=== PATIENT | male | born 1945 | race Caucasian/White ===

== ENCOUNTER → 2020-02-14 12:43 | Outpatient (CLI) | payer MEDICARE, OTHER, SELFPAY ==
--- NOTE | 2020-02-14 12:45 | CA_ITS ---
APPROVED REPORT Kitchen Mechanic: Martha Gayle RVT Laterality: Bilateral Study Quality: Good Indications: Dizziness and Vertigo, TIA,TAYLOR Risk Factors TIA/CVA History Doppler Spectral Velocity Analysis ECA (R) 120.80/16.00 cm/s ECA (L) 96.50/13.50 cm/s dICA (R) 64.20/23.50 cm/s dICA (L) 84.50/28.40 cm/s Rosa (R) 67.40/21.40 cm/s Rosa (L) 82.30/26.20 cm/s pICA (R) 73.80/22.50 cm/s pICA (L) 75.60/28.40 cm/s dCCA (R) 81.30/20.30 cm/s dCCA (L) 65.80/14.20 cm/s pCCA (R) 73.80/15.00 cm/s pCCA (L) 94.30/22.40 cm/s Vert (R) 43.30/12.30 cm/s Vert (L) 24.80/7.30 cm/s ICA/CCA 0.91 ICA/CCA 1.28 Findings Study suggests less than 20% stenosis of the right internal cartoid artery. Study suggests less than 20% stenosis of the left internal cartoid artery. Antegrade flow seen bilateral vertebral arteries. Right thyroid nodule seen. Conclusion Study suggests less than 20% stenosis of the right internal cartoid artery. Study suggests less than 20% stenosis of the left internal cartoid artery. Antegrade flow seen bilateral vertebral arteries. Right thyroid nodule seen. Electronically signed by : Alejo Najera MD 02/15/2020 12:44:05
--- NOTE | 2020-02-14 13:43 | MR_ITS ---
PROCEDURE: MR LUMBAR SPINE WO CON CLINICAL INDICATION: RADICULOPATHY OF LEG LOW BACK PAIN, BILATERAL LEG NUMBNESS. NO INJURY, NO PRIOR COMPARISON: No exams were available for comparison TECHNIQUE: Standard multiplanar multiecho sequences are performed without contrast. 3-D MIP and myelographic images are also rendered and reviewed FINDINGS: There is normal alignment. The spinal cord ends at the L1 level. L1-L2: Unremarkable. Incidental lipoma/hemangioma in L1 L2-L3: Mild degenerative disc disease with bulging disc with facet and ligamentum hypertrophy with mild bilateral lateral recess and foraminal narrowing. L3-L4: Mild degenerative disc disease with minimal bulging disc and a small broad-based left paracentral and foraminal disc protrusion with facet and ligamentum hypertrophy. The disc abuts left L4 nerve root anteriorly. There is moderate left lateral recess and foraminal narrowing. There is a small right foraminal disc protrusion at this level as well causing mild right foraminal narrowing. L4-5: Degenerative disc disease with bulging disc with facet and ligamentum hypertrophy. This is causing moderate left-sided foraminal narrowing with impingement upon the exiting L4 nerve root. L5-S1: Mild degenerative disc disease with 2 mm anterolisthesis of L5 along with facet and ligamentum hypertrophy. IMPRESSION: 1. L2-L3: Mild degenerative disc disease with bulging disc with facet and ligamentum hypertrophy with mild bilateral lateral recess and foraminal narrowing. 2. L3-L4: Mild degenerative disc disease with minimal bulging disc and a small broad-based left paracentral and foraminal disc protrusion with facet and ligamentum hypertrophy. The disc abuts left L4 nerve root anteriorly. There is moderate left lateral recess and foraminal narrowing. There is a small right foraminal disc protrusion at this level as well causing mild right foraminal narrowing. 3. L4-5: Degenerative disc disease with bulging disc with facet and ligamentum hypertrophy. This is causing moderate left-sided foraminal narrowing with impingement upon the exiting L4 nerve root. 4. L5-S1: Mild degenerative disc disease with 2 mm anterolisthesis of L5 along with facet and ligamentum hypertrophy. 5. No canal stenosis or extruded herniated disc. Dictated by: Chance Elmore MD 02/15/2020 10:17 Chance Elmore MD in [place] 02/15/2020 10:17
--- NOTE | 2020-02-14 13:43 | MR_ITS ---
PROCEDURE: MR HEAD/BRAIN WO CON CLINICAL INDICATION: NONINTRACTABALE EPISODIC HEADAHCE, TIA ??TIA, PERIODS OF CONFUSION, HEADACHE. COMPARISON: No exams were available for comparison TECHNIQUE: Routine multiplanar multi echo sequences are performed without gadolinium enhancement. FINDINGS: No midline shift, mass effect, intracranial hemorrhage, or hydrocephalus is evident. There is a small linear area of increased diffusion and decreased ADC signal within the tail of the caudate nucleus on the left suspicious for small lacunar infarction. The cerebellopontine angles, cerebellum, brainstem have an unremarkable appearance. There are a few T2 white matter hyperintensities. The pituitary, optic chiasm, corpus callosum, and craniocervical junction have an unremarkable appearance. No mastoid effusion or sinus air-fluid level. IMPRESSION: Suspect a small lacunar infarction in the tail the caudate on the left otherwise negative MRI of the brain Dictated by: Chance Elmore MD 02/15/2020 10:01 Chance Elmore MD in [place] 02/15/2020 10:01
== END ==
PROVIDERS: PCP Internal Medicine Adolescent Medicine; Visit Provider Internal Medicine Adolescent Medicine
DX: R42 Dizziness and giddiness (principal); R51.9 Headache, unspecified; G45.9 Transient cerebral ischemic attack, unspecified; M54.10 Radiculopathy, site unspecified
CPT/HCPCS: 70551; 72148; 76376; 93880

== ENCOUNTER → 2020-03-24 16:27 | Outpatient (CLI) | payer MEDICARE, OTHER, SELFPAY ==
[2020-03-24 17:29] LABS: Basophils % 0.3 % (0.1-2.0); Eosinophils # 0.2 K/mm3 (0.0-0.4); Eosinophils % 2.3 % (0.1-12.0); Hematocrit 48.2 % (42.0-52.0); Lymphocytes # 2.4 K/mm3 (0.7-4.5); Lymphocytes % 33.9 % (10-50); Mean Corpuscular HGB Conc 33.2 g/dL (31.8-35.4); Mean Corpuscular Volume 99.5 fl (80-94); Mean Platelet Volume 7.8 fl (7.4-10.4); Monocytes # 0.6 K/mm3 (0.1-1.0); Neutrophils # 3.9 K/mm3 (1.8-7.8); Neutrophils % 55.4 % (37.0-80.0); Platelet Count 219 K/mm3 (142-424); Red Blood Count 4.85 M/mm3 (4.60-6.20); Red Cell Distribution Width 14.4 % (11.5-17.5)
[2020-03-24 17:55] LABS: Chloride 101 mmol/L (98-107); Potassium 4.7 mmoL/L (3.5-5.1); Sodium 140 mmol/L (136-145)
[2020-03-24 17:57] LABS: Blood Urea Nitrogen 14 mg/dl (9-20); Estimated Glomerular Filt Rate 65 ml/min (>60); GFR (African American) 79 ML/MIN (>60)
[2020-03-24 17:58] LABS: Alanine Aminotransferase 32 U/L (12-78); Albumin Level 4.5 g/dl (3.5-5.0); Albumin/Globulin Ratio 1.4 (1.1-1.8); Alkaline Phosphatase 53 U/L (38-126); Anion Gap 11.7 mEq/L (5-15); Aspartate Amino Transferase 32 U/L (17-59); Bilirubin,Total 0.4 mg/dl (0.2-1.3); Carbon Dioxide 32 mmol/L (22.0-30.0); Globulin 3.3 g/dL (1.3-3.2); Glucose 94 mg/dl (74-100); Total Protein,Serum 7.8 g/dl (6.3-8.2)
[2020-03-24 18:29] LABS: Thyroid Stimulating Hormone 2.08 uIU/mL (0.465-4.68)
== END ==
PROVIDERS: PCP Internal Medicine Adolescent Medicine; Visit Provider Nurse Practitioner Family
DX: I49.1 Atrial premature depolarization (principal); I49.9 Cardiac arrhythmia, unspecified
CPT/HCPCS: 36415; 80053; 84443; 85025; 93225; 93226

== ENCOUNTER 2020-04-09 10:00 | Outpatient (RCR) | payer MEDICARE, OTHER, SELFPAY ==
--- NOTE | 2020-02-24 09:01 | HMH.PTOPEV ---
PT Outpatient Evaluation Rehab PT Outpatient Evaluation Start: 02/24/20 08:19 Freq: Status: Active Protocol: Document 02/24/20 08:21 [id number] (Rec: 02/24/20 09:00 CHARMAINEUSMAN [id number]) Electronically Signed By Rafael Hurley PT 02/24/20 08:21 Outpatient Therapy Subjective History Subjective History This is the initial Physical Therapy evaluation for Linwood Ryan. Pt is a 74 y/o male referred to PT for c/o LBP and R>L LE S&S. Pt reports insidious onset of pain. Pt does not recall any trauma to area. Pt reports his pain normally begins when he's sitting or trying to go to sleep. Pt reports c/o tightness in R ankle w/ paresthesia in R lateral calf. Pt does reports some c/o pain running from buttocks into R foot. Pt also has c/o cramps in BLE Chief Complaint Pain,Spasms,Stiff Symptom Type Ache,Throb,Sharp,Tingling Symptoms Relieved By Rest/Positioning,Activity Symptoms Aggravated By Sitting Prior Functional Limitations None Current Functional Limitations Housework,Desk Work/Reading, Driving,Sleeping Symptom Description Intermittent Level of pain today (0-10) 0 Pain scale - at its best (0-10) 0 Pain scale - at its worst (0-10) 9 Lumbopelvic Eval Posture Thoracic Spine Posture Standing Position Increased Kyphosis Lumbar Spine Posture Standing Position Decreased Lordosis Assistive device Assistive Devices None / NA Palapation tenderness bilateral lumbar spinal tenderness No paraspinal tenderness No Lumbar/Sacral Palpation Findings Muscle Guarding Range of Motion Lumbar Spine Active Flexion Range of 70 Motion (degrees) Lumbar Spine Active Extension Range of 15 Motion (degrees) Left Lumbar Spine Lateral Flexion Active 25 Range of Motion (degrees) Right Lumbar Spine Lateral Flexion 25 Active Range of Motion (degrees) Lumbar Spine ROM Limitations Soft Tissue Tightness Special Tests Forward Bending Test- Standing Negative Left,Negative Right Forward Bending Test- Sitting Negative Left,Negative Right Hip Scouring (Quadrant) Test Negative Left,Negative Right Hip Piriformis Test Positive Right Sciatic Nerve Tension Test Negative Right Unilateral Straight Leg Raise (Lasegue) Positive Right Test Lumbar Long [place]
== END 2020-04-09 10:05 | disposition home or self-care (01) ==
LOC: PT 10:00
PROVIDERS: PCP Internal Medicine Adolescent Medicine; Visit Provider Internal Medicine Adolescent Medicine
DX: M54.5 Low back pain (principal)
CPT/HCPCS: 97012; 97014; 97110; 97140; 97163; 97164; G0283

== ENCOUNTER → 2020-10-13 09:56 | Outpatient (CLI) | payer MEDICARE, OTHER, SELFPAY ==
[2020-10-13] VITALS (8 sets, daily range): BP systolic 121–156; BP diastolic 71–88; PULSE 71–87; RESP 14–18; TEMP 36.9; O2SAT 96–98
== END ==
PROVIDERS: PCP Internal Medicine Adolescent Medicine; Visit Provider Internal Medicine Adolescent Medicine
DX: U07.1 COVID-19 (principal)
CPT/HCPCS: 96365

== ENCOUNTER → 2021-03-09 14:48 | Outpatient (CLI) | payer MEDICARE, OTHER, SELFPAY ==
--- NOTE | 2021-03-09 14:56 | XR_ITS ---
PROCEDURE: XR KNEE LT 3V CLINICAL INDICATION: RT MEDIAL KNEE PAIN COMPARISON: No exams were available for comparison FINDINGS: No fracture or dislocation. No lytic or blastic change. There is normal mineralization. Mild osteoarthritic changes involving all 3 compartments. Other findings:None. IMPRESSION: Mild osteoarthritic changes slightly progressed Dictated by: Chance Elmore MD 03/09/2021 16:50 Chance Elmore MD in [place] 03/09/2021 16:50
--- NOTE | 2021-03-09 14:56 | XR_ITS ---
PROCEDURE: XR KNEE RT 3V CLINICAL INDICATION: RT MEDIAL KNEE PAIN COMPARISON: CR KNEE3L KNEE-3 VIEWS-LT from 03/15/2016 FINDINGS: No fracture or dislocation. No lytic or blastic change. There is normal mineralization. There are mild osteoarthritic changes involving all 3 compartments. Small suprapatellar effusion noted. Other findings:Vascular calcification IMPRESSION: Mild osteoarthritic change with small suprapatellar effusion. Dictated by: Chance Elmore MD 03/09/2021 16:26 Chance Elmore MD in [place] 03/09/2021 16:26
== END ==
PROVIDERS: PCP Internal Medicine Adolescent Medicine; Visit Provider Internal Medicine Adolescent Medicine
DX: M25.561 Pain in right knee (principal)
CPT/HCPCS: 73562

== ENCOUNTER → 2021-03-10 15:37 | Outpatient (CLI) | payer MEDICARE, OTHER, SELFPAY ==
--- NOTE | 2021-03-10 15:45 | MR_ITS ---
PROCEDURE: MR LUMBAR SPINE WO CON CLINICAL INDICATION: ACUTE RT SIDED BACK PAIN COMPARISON: MR MR LUMBAR SPINE WO CON from 02/14/2020 TECHNIQUE: Standard multiplanar multiecho sequences are performed without contrast. 3-D MIP and myelographic images are also rendered and reviewed FINDINGS: There is normal alignment. The spinal cord ends at the L1 level. Probable hemangioma at L1. L1-L2: Mild facet and ligamentum hypertrophic change with mild left lateral recess narrowing. L2-L3: Mild circumferential bulging disc with facet and ligamentum hypertrophy and mild bilateral lateral recess and foraminal narrowing greater on the right compared to the left and slightly greater on right compared to the previous exam. There is a oval area of decreased T1 and T2 signal involving the L2 vertebral body on the right unchanged. This measures 12 mm. L3-L4: Degenerative disc disease with bulging disc eccentric toward the right with facet and ligamentum hypertrophic change with right lateral recess narrowing and mild bilateral foraminal narrowing greater on the right compared to the left and not significantly changed compared to the previous exam. Small right foraminal disc osteophyte complex similar to the previous exam. L4-5: Degenerative disc disease with 3 mm retrolisthesis of L4 which was not present on the previous exam. There is concentric bulging disc along with facet and ligamentum hypertrophy. There is moderate left-sided foraminal narrowing similar to the previous exam and mild right foraminal narrowing similar to the previous exam. Endplate osteophytes are present in the left foraminal and lateral region similar to the previous exam. L5-S1: Facet and ligamentum hypertrophy. Degenerative disc disease. 2 mm anterolisthesis L5 on S1. Mild bilateral foraminal narrowing not significantly changed. Tiny left paracentral disc protrusion which may been present previously without impingement. IMPRESSION: Multilevel lumbar spondylosis. Please see above for detailed description at each level. Dictated by: Chance Elmore MD 03/11/2021 10:33 Chance Elmore MD in [place] 03/11/2021 10:33
== END ==
PROVIDERS: PCP Internal Medicine Adolescent Medicine; Visit Provider Internal Medicine Adolescent Medicine
DX: M54.41 Lumbago with sciatica, right side (principal)
CPT/HCPCS: 72148; 76376

== ENCOUNTER 2021-05-17 14:00 | Outpatient (RCR) | payer MEDICARE, OTHER, SELFPAY | END 2021-05-17 14:05 | disposition home or self-care (01) | LOC: PT 14:00 | PROVIDERS: PCP Internal Medicine Adolescent Medicine; Visit Provider Orthopaedic Surgery | DX: M51.36 Other intervertebral disc degeneration, lumbar region (principal); M25.561 Pain in right knee | CPT/HCPCS: 97010; 97014; 97110; 97140; 97163; 97530; G0283 ==

== ENCOUNTER → 2022-02-17 11:58 | Outpatient (CLI) | payer MEDICARE, OTHER, SELFPAY ==
--- NOTE | 2022-02-17 12:02 | XR_ITS ---
FINAL REPORT TECHNIQUE: Chest PA & Lateral CLINICAL HISTORY: ACUTE BRONCHOPNEUMONIA FINDINGS: 2 views of the chest were performed. The heart size is normal. The mediastinum is within normal limits. There is no acute cardiopulmonary process. There are chronic changes in the lung bases. There are no pleural effusions. There is no pneumothorax. The bony thorax appears intact. IMPRESSION: No acute cardiopulmonary process. Reviewed, Interpreted and Dictated by Leland Guerrero MD Transcribed by Neftaly Diamond Authenticated and [facility]
== END ==
PROVIDERS: PCP Internal Medicine Adolescent Medicine; Visit Provider Internal Medicine Adolescent Medicine
DX: R50.9 Fever, unspecified (principal); J18.0 Bronchopneumonia, unspecified organism
CPT/HCPCS: 71046

== ENCOUNTER → 2022-09-14 16:38 | Outpatient (CLI) | payer MEDICARE, OTHER, SELFPAY | PROVIDERS: PCP Internal Medicine Adolescent Medicine; Visit Provider Internal Medicine Adolescent Medicine | DX: R00.2 Palpitations (principal) | CPT/HCPCS: 93225; 93226 ==

== ENCOUNTER 2022-12-06 14:00 | Outpatient (RCR) | payer MEDICARE, OTHER, SELFPAY ==
--- NOTE | 2022-11-16 15:02 | HMH.OTOPEV ---
OT Inpatient Evaluation Rehab OT Outpatient Eval Start: 11/16/22 14:49 Freq: Status: Active Protocol: Document 11/15/22 14:49 CHRIS (Rec: 11/16/22 15:02 [id number] [id number]) E-signed By Behzad Huitron, OT Outpatient Therapy Subjective History Subjective History Pt is a 77 year old male who reports to therapy for evaluation to right wrist. Pt reports he has been having pain in right wrist/hand for ~ 3 weeks now. He does not recall a specific injury causing his pain to begin. He is right hand dominant. Pt reports his symtpoms consist of burning, tingling, aching, and numbness in thumb, index, and middle finger of right hand. Pt went to PCP who believes he could possibly have CTS. 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 Pt does demonstrate with decreased AROM, Strength, and tube sizer operator strength at right wrist/ hand. Pt will continue to be seen twice a week in order to address all right hand deficits. 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
== END 2022-12-06 14:05 | disposition home or self-care (01) ==
LOC: OT 14:00
PROVIDERS: PCP Internal Medicine Adolescent Medicine; Visit Provider Nurse Practitioner Family
DX: G56.01 Carpal tunnel syndrome, right upper limb (principal)
CPT/HCPCS: 97010; 97014; 97035; 97110; 97140; 97166; 97530; G0283

== ENCOUNTER → 2022-12-12 12:40 | Outpatient (CLI) | payer MEDICARE, OTHER, SELFPAY ==
--- NOTE | 2022-12-12 12:52 | XR_ITS ---
FINAL REPORT CLINICAL HISTORY: RT THUMB PAIN FINDINGS: AP, lateral and oblique views of the right hand were obtained. There is no prior exam for comparison. There is no acute fracture or dislocation. There is multi joint degenerative disease, most pronounced in the IP joint of the thumb in the DIP joints of the fingers. The soft tissues are normal. IMPRESSION: Degenerative changes without acute bony abnormality. Reviewed, Interpreted and Dictated by Rashmi Conteh MD Transcribed by Rashmi Bunn Authenticated and [facility]
== END ==
PROVIDERS: PCP Internal Medicine Adolescent Medicine; Visit Provider Internal Medicine Adolescent Medicine
DX: M79.644 Pain in right finger(s) (principal)
CPT/HCPCS: 73130

== ENCOUNTER 2023-02-17 09:36 | Day surgery (SDC) | payer MEDICARE, OTHER, SELFPAY ==
[2023-02-17] VITALS (9 sets, daily range): BP systolic 121–160; BP diastolic 86–110; PULSE 56–94; RESP 16–18; TEMP 36.1–36.2; O2SAT 94–99; BMI 33.3
--- NOTE | 2023-02-17 09:43 | ECG_ITS ---
APPROVED REPORT Exam: Resting ECG HR:68 bpm ECG Measurements Heart Rate 68 AXES NJ 173 P 49 QRSd 96 QRS 22 QT 433 T 40 QTc 451 Conclusion SINUS RHYTHM NONSPECIFIC T-WAVE ABNORMALITY BORDERLINE ECG UNCONFIRMED REPORT Electronically signed by : Freddie Burgos MD 02/17/2023 16:29:14
[2023-02-17] MEDS: LACTATED RINGERS 1000ML 1,000 ML 25 ML IV (10:01)
[2023-02-17 10:19] LABS: Basophils % 0.5 % (0.1-2.0); Eosinophils # 0.2 K/mm3 (0.0-0.4); Eosinophils % 2.1 % (0.1-12.0); Hematocrit 47.2 % (42.0-52.0); Hemoglobin 15.6 g/dL (14.1-18.0); Lymphocytes # 2.1 K/mm3 (0.7-4.5); Lymphocytes % 29.4 % (10-50); Mean Corpuscular HGB Conc 33.1 g/dL (31.8-35.4); Mean Corpuscular Hemoglobin 32.4 pg (27.0-31.2); Mean Corpuscular Volume 97.8 fl (80-94); Mean Platelet Volume 7.7 fl (7.4-10.4); Monocytes # 0.5 K/mm3 (0.1-1.0); Monocytes % 6.9 % (1.7-9.3); Neutrophils # 4.3 K/mm3 (1.8-7.8); Neutrophils % 61.1 % (37.0-80.0); Platelet Count 231 K/mm3 (142-424); Red Blood Count 4.82 M/mm3 (4.60-6.20); Red Cell Distribution Width 13.6 % (11.5-17.5); White Blood Count 7.1 K/mm3 (4.8-10.8)
[2023-02-17 10:34] LABS: Chloride 101 mmol/L (98-107); Sodium 135 mmol/L (136-145)
[2023-02-17 10:35] LABS: Potassium 4.2 mmoL/L (3.5-5.1)
[2023-02-17 10:37] LABS: Blood Urea Nitrogen 18 mg/dl (9-20); Creatinine Clearance Estimated 81 mL/min (50-200); Estimated Glomerular Filt Rate 59 ml/min (>60); GFR (African American) 71 ML/MIN (>60)
[2023-02-17 10:38] LABS: Anion Gap 13.2 mEq/L (5-15); Carbon Dioxide 25 mmol/L (22.0-30.0); Glucose 113 mg/dl (74-100)
--- NOTE | 2023-02-17 10:54 | P.PNANES_ITS ---
[facility] Disclaimer: The information contained in this section may have been updated after the patient was seen, as this information can be updated by other users. Medical History (Updated 02/17/23 @ 10:06 by Bossman English RN) A-fib Hypertension Surgical History History of cardiac radiofrequency ablation (RFA) History of colonoscopy History of repair of left rotator cuff Family History (Updated 02/17/23 @ 10:09 by Bossman English RN) Other Family history of heart disease Social History (Updated 02/17/23 @ 10:12 by Bossman English RN) Smoking Status: Never smoker alcohol intake: never substance use type: denies use current occupational status: employed and retired Travel in the last 8 weeks: None [facility] Anesthesia Checklist Patient Identification Patient Identification: Arm Band and Family Structural Data Admitted From: Home Planned Operative Procedure/s: I and D Right upper back sebaseus cyst Consent for Planned Operative Procedure(s) Verified: Yes Verified Documents: Surgical Consent and History and Physical NPO Status Verified Time NPO: 00:00 Additional verifications Patient : No Anesthesia Reactions: No (nausea) Hx Blood Transfusions: No Blood Transfusion Reaction: No Cephalosporin Allergy: Yes Previous Colonoscopy: No Airway Assessment Mallampati Score:: Class III C-Spine Mobility Assessed: Yes Dentition: Good Dentition Neurological Assessment Level of Consciousness: Awake, Alert, Appropriate and Follows Commands Hx Seizures: No Numbness or tingling in extremities: No Anesthesia Plan Anesthesia Risk discussed: Yes ASA Class: III Anesthesia Type: General Preoperative Comments Pre-Operative Comments: History of atrial fib, Ablation done with good results. Hypertension. On Eliquis. PONV.
[2023-02-17] MEDS: LIDOCAINE 1% 30ML PF VIAL 30 ML (11:31)
[2023-02-17] MEDS: CLINDAMYCIN PHOSPHATE/D5W 900 MG/50 ML PIGGYBACK 106 MG IV (11:36)
--- NOTE | 2023-02-17 11:44 | EXP.OP.NOTE ---
Date of procedure: 02/17/23 Pre-op Diagnosis:: Abscessed sebaceous cyst along posterior right shoulder Post-op Diagnosis:: Same Procedure performed:: Incision and drainage/excision of abscessed sebaceous cyst along posterior right shoulder Surgeon:: Wes Noble MD Anesthesia: local and LMA Estimated blood loss (mL): 10 Operative findings:: Abscessed cyst within subcutaneous tissue (3.5 cm) Operative note:: After informed consent was obtained the patient was taken to the operating room and placed in the supine position. General anesthesia with laryngeal mask airway was achieved. He was transferred to the left lateral decubitus position. After infiltration with local anesthetic an elliptical incision was made around the abscessed cyst. Electrocautery was utilized to transect into the deep subcutaneous tissue as the central portion of the cyst was excised and passed off for pathologic evaluation. Electrocautery was then utilized to achieve hemostasis. The wound was packed with dry gauze. Dressings were applied and the patient was transferred to recovery after removal of his laryngeal mask airway. Condition: stable Disposition: PACU Specimens:: Abscessed right posterior shoulder sebaceous cyst Complications:: No immediate
--- NOTE | 2023-02-17 12:01 | EXP.ANES.I ---
[facility] Anesthesia Record Part I Anesthesia Record I Intake, IV Amount: 900 Hydration: Adequate Estimated blood loss (mL): 5 Urine output (mL): 0 Blood Products used (#): none Blood Pressure: 150/86 SaO2: 95 Pulse Rate: 94 Airway Patency: Patent Respiratory Rate: 18 Temperature: 97.2 F Patient is:: Drowsy and Stable Stable to PACU at:: 11:48
[2023-02-17] MEDS: BACITRACIN ZINC OINT 30GM TUBE 28 GM TP (12:02)
--- NOTE | 2023-02-20 07:38 | EXP.ANES.II ---
[facility] Anesthesia Record Part II Anesthesia Record Part II Discharge Time: 12:18 Destination: Surgical Day Care (OP Surgery) PACU nurse assessment reviewed?: Yes Patient Condition:: Good Anesthesia Complications:: None Swallowing reflex intact?: Yes Airway Patency: Patent Cyanosis?: No Blood Pressure: 146/87 SaO2: 96 Respiratory Rate: 18 Pulse Rate: 60 Temperature: 97 F Mental Status: Alert & Oriented Pain level:: 0 Nausea and/or vomitting:: None Intake, IV Amount: 0 Hydration: Adequate
[2023-02-20 07:39] VITALS: BP 146/87; PULSE 60; RESP 18; TEMP 36.1; O2SAT 96
== END 2023-02-17 13:00 | disposition home or self-care (01) ==
PROVIDERS: PCP Internal Medicine Adolescent Medicine; Visit Provider Surgery
PROC: (CPT 10061; principal; 2023-02-17 11:00)
DX: L72.3 Sebaceous cyst (principal); Z79.899 Other long term (current) drug therapy; L02.413 Cutaneous abscess of right upper limb
CPT/HCPCS: 10061; 80048; 85025; 93005; 96374; J2405

== ENCOUNTER 2024-04-04 16:18 | Emergency (ER) | payer MEDICARE, OTHER, SELFPAY ==
[2024-04-04 16:20] VITALS: BP 140/95; PULSE 65; RESP 18; TEMP 36.4; O2SAT 94; BMI 33.9
--- NOTE | 2024-04-04 16:37 | XR_ITS ---
PROCEDURE INFORMATION: Exam: XR Right Humerus Exam date and time: 04/04/2024 5:00 PM Age: 78 years old Clinical indication: Injury or trauma; Fall; Blunt trauma (contusions or hematomas); Shoulder; Right TECHNIQUE: Imaging protocol: Radiologic exam of the right humerus. Views: 2 or more views. Total images: 2 COMPARISON: CR XR HUMERUS RT 04/04/2024 5:00 PM FINDINGS: Bones/joints: No evidence of acute fracture or dislocation. Degenerative changes of the glenohumeral and acromioclavicular joints. Soft tissues: Soft tissues are within normal limits. IMPRESSION: 1. No evidence of acute fracture or dislocation. 2. Degenerative changes of the glenohumeral and acromioclavicular joints.
--- NOTE | 2024-04-04 16:37 | XR_ITS ---
PROCEDURE INFORMATION: Exam: XR Right Shoulder Exam date and time: 04/04/2024 4:57 PM Age: 78 years old Clinical indication: Injury or trauma; Fall; Blunt trauma (contusions or hematomas); Shoulder; Right TECHNIQUE: Imaging protocol: Radiologic exam of the right shoulder. Views: 2 or more views. Total images: 3 COMPARISON: CR XR SHOULDER RT MIN 2V 04/04/2024 4:57 PM FINDINGS: Bones/joints: No evidence of acute fracture or dislocation. Degenerative changes of the glenohumeral and acromioclavicular joints. Soft tissues: Soft tissues are within normal limits. IMPRESSION: 1. No evidence of acute fracture or dislocation. 2. Degenerative changes of the glenohumeral and acromioclavicular joints.
--- NOTE | 2024-04-04 16:42 | CT_ITS ---
PROCEDURE INFORMATION: Exam: CT Thoracic Spine Without Contrast Exam date and time: 04/04/2024 5:01 PM Age: 78 years old Clinical indication: Injury or trauma; Fall; Blunt trauma (contusions or hematomas); Additional info: Ground level fall >65, R shoulder/upper back pain TECHNIQUE: Imaging protocol: Computed tomography of the thoracic spine without contrast. Total images: 324 Radiation optimization: All CT scans at this facility use at least one of these dose optimization techniques: automated exposure control; mA and/or kV adjustment per patient size (includes targeted exams where dose is matched to clinical indication); or iterative reconstruction. COMPARISON: CT CERVICAL SPINE WO CON 04/04/2024 4:59 PM FINDINGS: Bones/joints: The thoracic spine demonstrates mild degenerative changes at multiple levels. No evidence of acute fracture. Anterior hypertrophic bridging noted at multiple levels. Soft tissues: Unremarkable. IMPRESSION: 1. The thoracic spine demonstrates mild degenerative changes at multiple levels. 2. No evidence of acute fracture. 3. Anterior hypertrophic bridging noted at multiple levels.
--- NOTE | 2024-04-04 16:42 | CT_ITS ---
PROCEDURE INFORMATION: Exam: CT Head Without Contrast Exam date and time: 04/04/2024 4:57 PM Age: 78 years old Clinical indication: Injury or trauma; Fall; Blunt trauma (contusions or hematomas); Additional info: Ground level fall >65, R shoulder/upper back pain TECHNIQUE: Imaging protocol: Computed tomography of the head without contrast. Radiation optimization: All CT scans at this facility use at least one of these dose optimization techniques: automated exposure control; mA and/or kV adjustment per patient size (includes targeted exams where dose is matched to clinical indication); or iterative reconstruction. COMPARISON: CT HEAD/BRAIN WO CON 04/04/2024 4:57 PM FINDINGS: Brain: Mild age-related volume loss. No acute intracranial hemorrhage, midline shift or intracranial mass effect. Cerebral ventricles: No obstructive hydrocephalus. Paranasal sinuses: [id number] paranasal sinus disease. Mastoid air cells: Visualized mastoid air cells are well aerated. Bones: Unremarkable. No acute fracture. Soft tissues: Unremarkable. IMPRESSION: No acute intracranial abnormality.
--- NOTE | 2024-04-04 16:42 | CT_ITS ---
PROCEDURE INFORMATION: Exam: CT Chest Without Contrast; Diagnostic Exam date and time: 04/04/2024 5:03 PM Age: 78 years old Clinical indication: Injury or trauma; Fall; Blunt trauma (contusions or hematomas); Additional info: Ground level fall >65, R shoulder/upper back pain TECHNIQUE: Imaging protocol: Diagnostic computed tomography of the chest without contrast. Total images: 463 Radiation optimization: All CT scans at this facility use at least one of these dose optimization techniques: automated exposure control; mA and/or kV adjustment per patient size (includes targeted exams where dose is matched to clinical indication); or iterative reconstruction. COMPARISON: No prior studies available for comparison. FINDINGS: Limitations: Examination limited by the lack of IV contrast. Thyroid: Thyroid gland is within normal limits. Lungs: Granulomatous density noted within the right upper lobe. No focal pneumonia. Pleural spaces: No evidence of pneumothorax. No pleural effusions. Heart: Unremarkable. No cardiomegaly. No pericardial effusion. Coronary arteries: There is moderate atherosclerotic calcification of the coronary arteries. Lymph nodes: No mesenteric or retroperitoneal lymphadenopathy. Calcified right hilar lymph nodes are present consistent with granulomatous changes. Vasculature: Mild atherosclerotic disease. Liver: There is a diffuse decrease in hepatic parenchymal density, consistent with mild fatty infiltration. Gallbladder and biliary ducts: Multiple calcified gallstones are present. Bones/joints: The thoracic spine demonstrates mild degenerative changes at multiple levels. Slight rightward curvature of the thoracic spine. Soft tissues: Unremarkable. IMPRESSION: 1. No mesenteric or retroperitoneal lymphadenopathy. 2. There is a diffuse decrease in hepatic parenchymal density, consistent with mild fatty infiltration. 3. Multiple calcified gallstones are present. 4. No evidence of pneumothorax.
--- NOTE | 2024-04-04 16:42 | CT_ITS ---
PROCEDURE INFORMATION: Exam: CT Cervical Spine Without Contrast Exam date and time: 04/04/2024 4:59 PM Age: 78 years old Clinical indication: Injury or trauma; Fall; Blunt trauma; Additional info: Ground level fall >65, R shoulder/upper back pain TECHNIQUE: Imaging protocol: Computed tomography of the cervical spine without contrast. Radiation optimization: All CT scans at this facility use at least one of these dose optimization techniques: automated exposure control; mA and/or kV adjustment per patient size (includes targeted exams where dose is matched to clinical indication); or iterative reconstruction. COMPARISON: CT CERVICAL SPINE WO CON 04/04/2024 4:59 PM FINDINGS: Bones: Vertebral body height and AP alignment is preserved. Bftg-kj-dicyatmv degenerative change about the dens. Mild prevertebral osteophytosis. Bilateral facet joint degenerative change. No acute cervical spine fracture. Central canal stenoses are suboptimally evaluated secondary to technique. Multilevel cervical foraminal stenoses. Lungs: Lung apices are normal. Pleural spaces: No visible pneumothorax. Vasculature: Vascular calcification. Soft tissues: Unremarkable. IMPRESSION: No acute cervical spine fracture.
--- NOTE | 2024-04-04 17:12 | ED_ITS ---
Discharge Plan Disposition Patient Disposition: Home, Self-Care Condition: Good Prescriptions Prescriptions: No Action mupirocin 2 % ointment 2 ea topical DAILY Patient Comments: APPLY OINTMENT TOPICALLY THREE TIMES DAILY FOR 7 DAYS losartan 25 mg tablet 25 mg PO DAILY Patient Comments: TAKE 1 TABLET BY MOUTH ONCE DAILY pregabalin 50 mg capsule 50 mg PO DAILY Patient Comments: TAKE 1 CAPSULE BY MOUTH AT BEDTIME Eliquis 5 mg tablet 5 mg PO DAILY Patient Comments: TAKE 1 TABLET BY MOUTH TWICE DAILY metoprolol succinate 25 mg tablet extended release 24 hr 25 mg PO DAILY Patient Comments: TAKE 1 TABLET BY MOUTH TWICE DAILY. DO NOT CRUSH OR CHEW Referrals Follow up/Referrals: Phillip Andrea DO [Staff Physician] - See instructions Freddie Burgos MD [Primary Care Provider] - See instructions Activity Restrictions/Add. Instructions Additional Instructions/Restrictions: You were evaluated in the emergency department today. Please take Tylenol and ibuprofen at home as needed for pain. Use sling as needed for comfort, however I recommend moving your shoulder is much as possible to maintain good range of motion. Follow-up closely with orthopedics if you continue to have significant pain. Return to the emergency department for new or worsening symptoms. Clinical Impressions Clinical Impression: Fall, Acute pain of right shoulder Instructions Patient Instructions: DI for Acute Pain -- Adult, DI for Shoulder Pain Print Language Print Language: Grenadian Discharge ED Provider: Anna Marie Dodge General Adult HPI General Chief complaint: Extremity Injury, Upper Stated complaint: AO01/16 Fall RT shoulder inj Time Seen by Provider: 04/04/24 16:23 Mode of Arrival: Ambulatory Source of Information: Patient Limitations: No Limitations Description of Symptoms (Recalled from ER Triage Doc. by RN): r shoulder pain after a fall on ice History of Present Illness HPI narrative: This patient is a 78-year-old male who has a history of atrial fibrillation on Eliquis, hypertension presenting to the emergency department for evaluation with concern for right shoulder pain. Patient states that he was walking up some stairs that were completely covered in snow and ice to the point where he was essentially a ramp, and he had tried to step up onto it when he slid down, falling and landing on his right shoulder. He did not hit his head or lose consciousness. He did not fall from any significant height, as he states that it was barely even a step. He only complains of right shoulder pain but no other concerns or complaints at this time. No new numbness, tingling, or other issues. He was well prior to the fall. Related Data Home Medications ?Medication ?Instructions ?Recorded ?Confirmed apixaban 5 mg tablet (Eliquis) 5 mg PO DAILY 02/17/23 04/19/23 losartan 25 mg tablet 25 mg PO DAILY 02/17/23 04/19/23 metoprolol succinate 25 mg 25 mg PO DAILY 02/17/23 04/19/23 tablet,extended release 24 hr mupirocin 2 % topical ointment 2 ea topical DAILY 02/17/23 04/19/23 pregabalin 50 mg capsule 50 mg PO DAILY 02/17/23 04/19/23 Allergies Allergy/AdvReac Type Severity Reaction Status Date / Time Penicillins Allergy Verified 04/19/23 13:11 [facility] Disclaimer: The information contained in this section may have been updated after the patient was seen, as this information can be updated by other users. Medical History A-fib Hypertension Surgical History History of incision and drainage History of repair of left rotator cuff History of colonoscopy History of cardiac radiofrequency ablation (RFA) Family History Other Family history of heart disease Social History Smoking Status: Never smoker alcohol intake: never substance use type: denies use current occupational status: employed and retired Travel in the last 8 weeks: None Have you lived/traveled outside US in past 30 days?: No Contact w/someone who lives/traveled outside US past 30 days?: No Exposure to someone with infectious disease in past 14 days?: No Do you have a fever (greater than 100.4 F or 38 C)?: No Have you tested positive for COVID-19: No Exposed to someone with COVID-19 in past 14 days?: No Do you have a sore throat?: No Do you have a cough?: No Do you have any weakness?: No Do you have any diarrhea?: No Are you experiencing any unusual bleeding?: No Do you have any muscle aches/pain?: No Do you have any abdominal pain?: No Are you experiencing loss of taste or smell?: No Other Medical History Have you received the Pneumonia Vaccine: No ROS Obtained: Yes All systems reviewed & no additional complaints except as documented Physical Exam General General appearance: alert and in no apparent distress Head Head exam: atraumatic and normocephalic Eye Eye exam: Present normal appearance, PERRL and EOMI ENT ENT exam: Present normal exam, normal oropharynx, mucous membranes moist and normal external ear exam Neck Neck exam: Present normal inspection, full ROM and trachea midline; Absent tenderness Chest Chest inspection: Present normal inspection and symmetric chest wall rise; Absent tenderness Respiratory Respiratory exam: Present normal lung sounds bilaterally; Absent respiratory distress, wheezes, stridor or accessory muscle use Cardiovascular Cardiovascular exam: Present regular rate and normal rhythm Abdominal Exam Abdominal exam: Present soft; Absent distention, tenderness or guarding Extremities Exam Extremities exam: Present tenderness (posterior shoulder), normal capillary refill and other (neurovascularly intact distally); Absent full ROM (limited ROM of R shoulder 2/2 pain) or edema Back Exam Back exam: Present normal inspection and full ROM; Absent tenderness Neurological Exam Neurological exam: Present alert, oriented X3, CN II-XII intact and normal gait; Absent motor sensory deficit Psychiatric Psychiatric exam: Present normal affect and normal mood Skin Skin exam: Present warm and dry Medical Decision Making Medical Records Medical records reviewed: Yes I reviewed the patient's medical records. Screening: Per USPSTF and CDC recommendations, given the prevalence of disease in our region, it is our hospital?s policy to screen for HIV and viral Hepatitis for all patients aged 18 and over and those with ongoing risk factors. Mack Inquiry Pt receiving controlled substance: No Vital Signs: 04/04/24 16:20 04/04/24 17:33 04/04/24 18:01 Temperature 97.6 F Temperature Source Oral Pulse Rate 64 61 Pulse Rate [Left] 65 Respiratory Rate 18 Blood Pressure 146/87 H 153/84 H Blood Pressure [Left Arm] 140/95 H Blood Pressure Mean [Left Arm] 110 02 Sat by Pulse Oximetry 94 L 97 97 Oxygen Delivery Method Room Air Room Air 04/04/24 18:45 Temperature 97.6 F Temperature Source Pulse Rate 61 Pulse Rate [Left] Respiratory Rate 13 Blood Pressure 153/84 H Blood Pressure [Left Arm] Blood Pressure Mean [Left Arm] 02 Sat by Pulse Oximetry Oxygen Delivery Method Lab Data Lab results reviewed: Yes I reviewed the patient's lab results. Orders (Tests/Meds): ORDERS Category Date Time Status CT cervical spine wo con Stat Cat Scan 04/04/24 16:[address] chest wo con Stat Cat Scan 04/04/24 16:[address] head/brain wo con Stat Cat Scan 04/04/24 16:[address] thoracic spine wo con Stat Cat Scan 04/04/24 16:42 Completed XR humerus RT Stat Exams 04/04/24 16:37 Completed XR shoulder RT min 2V Stat Exams 04/04/24 16:37 Completed Medical Decision Narrative: In summary, this patient is a 78-year-old male presenting to the Emergency Department for evaluation of right shoulder pain after a mechanical ground-level fall. Differential diagnoses considered include but are not limited to fracture, contusion, head trauma, neck trauma, back trauma, polytrauma. Ruling out the most morbid conditions drove assessment. It should be noted patient's history includes atrial fibrillation, hypertension which may or may not be at goal therapy. This complicates all aspects of care by increasing patient's risk for morbidity. I reviewed patient's past medical records and noted prior evaluation a year ago and the general surgery show week for sebaceous cyst with excision and drainage. On exam, the patient is sitting upright in no acute distress. Has pain with limited range of motion of the right shoulder and tenderness palpation of the posterior aspect of the shoulder. He is neurovascularly intact with no other injuries noted. No midline spinal tenderness. Based on Lebanese head CT and C- spine rules, cannot exclude head or neck trauma given age greater than 65. Given this, workup included CT head and C-spine, CT chest and T-spine, as well as x-rays of the right shoulder. He declines need for pain medication at this time. I independently interpreted CT scans and x-rays prior to the radiologist read and noted no intracranial hemorrhage, no acute fracture. Please see their read for final interpretation. On reassessment, patient is alert, oriented, conversational, and neurovascularly intact in his right upper extremity. Ultimately, I feel we have excluded acute life-threatening pathology as a cause of his symptoms and I feel he is appropriate for discharge home with close follow-up with orthopedics, primary care, and very strict return precautions. He was given sling as needed for comfort of his right upper extremity but was instructed to range his arm is much as possible. Strict return precautions were given at time of discharge Critical Care Critical Care Time Critical Care Time: No
[2024-04-04 17:33] VITALS: BP 146/87; PULSE 64; O2SAT 97
[2024-04-04 18:01] VITALS: BP 153/84; PULSE 61; O2SAT 97
--- NOTE | 2024-04-04 18:34 | PC.NURSE ---
DR ASHLEY AT BEDSIDE TO UPDATE PT AND FAMILY
[2024-04-04 18:45] VITALS: BP 153/84; PULSE 61; RESP 13; TEMP 36.4; O2SAT 97
== END 2024-04-04 18:45 | disposition home or self-care (01) ==
PROVIDERS: Emergency Provider Emergency Medicine; PCP Internal Medicine Adolescent Medicine
DX: M25.511 Pain in right shoulder (principal); W00.1XXA Fall from stairs and steps due to ice and snow, initial encounter; Y93.89 Activity, other specified; Y92.89 Other specified places as the place of occurrence of the external cause
CPT/HCPCS: 70450; 71250; 72125; 72128; 73030; 73060; 99284

== ENCOUNTER 2024-06-17 11:00 | Outpatient (RCR) | payer MEDICARE, OTHER, SELFPAY | END 2024-06-17 23:59 | disposition home or self-care (01) | LOC: OT 11:00 | PROVIDERS: Visit Provider Orthopaedic Surgery | DX: S46.011A Strain of muscle(s) and tendon(s) of the rotator cuff of right shoulder, initial encounter (principal) | CPT/HCPCS: 97014; 97110; 97140; 97165; 97530; G0283 ==

== ENCOUNTER 2024-07-04 14:00 | Outpatient (RCR) | payer MEDICARE, OTHER, SELFPAY | END 2024-07-04 23:59 | disposition home or self-care (01) | LOC: OT 14:00 | PROVIDERS: Visit Provider Orthopaedic Surgery | DX: S46.011A Strain of muscle(s) and tendon(s) of the rotator cuff of right shoulder, initial encounter (principal) | CPT/HCPCS: 97014; 97110; 97140; 97168; G0283 ==

== ENCOUNTER 2024-08-16 11:00 | Outpatient (RCR) | payer MEDICARE, OTHER, SELFPAY | END 2024-08-16 23:59 | disposition home or self-care (01) | LOC: OT 11:00 | PROVIDERS: Visit Provider Orthopaedic Surgery | DX: S46.011A Strain of muscle(s) and tendon(s) of the rotator cuff of right shoulder, initial encounter (principal) | CPT/HCPCS: 97014; 97110; 97140; G0283 ==

== ENCOUNTER 2024-09-11 11:00 | Outpatient (RCR) | payer MEDICARE, OTHER, SELFPAY | END 2024-09-11 23:59 | disposition home or self-care (01) | LOC: OT 11:00 | PROVIDERS: Visit Provider Orthopaedic Surgery | DX: S46.011A Strain of muscle(s) and tendon(s) of the rotator cuff of right shoulder, initial encounter (principal) | CPT/HCPCS: 97014; 97110; 97140; 97530; G0283 ==

== ENCOUNTER 2024-09-18 13:52 | Outpatient (RCR) | payer MEDICARE, OTHER, SELFPAY | END 2024-09-18 23:59 | disposition home or self-care (01) | LOC: OT 13:52 | PROVIDERS: Visit Provider Internal Medicine Adolescent Medicine | DX: S46.011A Strain of muscle(s) and tendon(s) of the rotator cuff of right shoulder, initial encounter (principal) | CPT/HCPCS: 97014; 97110; 97140; G0283 ==

== ENCOUNTER 2024-11-25 12:00 | Outpatient (CLI) | payer MEDICARE, OTHER, SELFPAY ==
--- OUTSIDE RECORDS SUMMARY | 2024-10-15 13:40 | XMS_ITS | Encounter Summary ---
Author Organization [facility] Address [address] [place] [address] Care Team Providers Care High Voltage Electrician Name Role Phone Freddie Burgos MD Primary Care Provider [phone] Reason for Referral * Other Medical (Routine) - Pending Review Specialty Diagnoses / Procedures Referred By Contac t Referred To Contact Diagnoses Traumatic complete tear of right rotator cuff, subsequent encounter Procedures Injection - Large Joint: R subacromial bursa Cesar Henry MD [address] [address] Phone: tel: fax: Referral ID Status Reason Start Date Expiration Date V isits Requested Visits Authorized [id number] Pending Review 10/15/2024 04/16/2026 1 1 Reason for Visit * Reason Comments Follow-up Injections Encounter Details Date Type Department Care Team (Late st Contact Info) Description 10/15/2024 1:40 PM EDT Office Visit [facility] [address] [place] [address] Cesar Henry MD [address] [place] [address] Traumatic complete tear of right rotator cuff, subsequent encounter (Primary Dx) Social History Tobacco Use Types Packs/Day Years Used Date Smoking Tobacco: Former Cigarettes 1 2 1967 Passive Smoke Exposure: Never Smokeless Tobacco: Never Tobacco Cessation:Counseling Given: Not Answered Alcohol Use Standard Drinks/Week Comments Not Currently 0 (1 standard drink = 0.6 oz pure alcohol) Alcoholic Drinks/day: Social alcohol use PHQ-2 Answer Date Recorded Patient Health Questionnaire-2 Score 0 07/16/2024 PHQ-9 Answer Date Recorded Patient Health Questionnaire-9 Score 0 07/16/2024 CAGE ASSESSMENT Answer Date Recorded Cage unable to access Not on file 09/16/2022 Maximum number of drinks you had on a given occasion in the last month? 0 drinks 09/16/2022 How many alcoholic Beverages do you typically drink in a week? 0 - 7 per week 09/16/2022 Have you ever felt you should CUT down on your d rinking? 0 09/16/2022 Have you been ANNOYED by peo ple criticizing your drinking? 0 09/16/2022 Have you felt GUILTY about your drinking? 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 0 09/16/2022 CAGE Questionnaire Score 0 023 Sex and Gender Information Value Date Recorded Sex Assigned at Male 09/17/2022 6:42 PM EDT Legal Sex Male 8:05 PM EDT Gender Identity Male 09/17/2022 6:42 PM EDT Sexual Orientation Straight 09/17/2022 6: 42 PM EDT documented as of this encounter Last Filed Vital Signs Vital Sign Reading Time Taken Comments Blood Pressure 173/86 10/15/2024 12:57 PM EDT Pulse - - Temperature - - Respiratory Rate - - Oxygen Saturation - - Inhaled Oxygen Concentration - - Weight 111 kg (245 lb) 10/15/2024 12:57 PM EDT Height 182.9 cm (6') 10/15/2024 12:57 PM EDT Body Mass Index 33.23 10/15/2024 12:57 PM EDT documented in this encounter Miscellaneous Notes * Progress Notes - Sushil Escalante DO - 10/15/2024 1:40 PM EDTAssociated Order(s): Injection - Large Joint: R subacromial bursa Post-Procedure Diagnose(s): Traumatic complete tear of right rotator cuff, subsequent encounter Orthopedic Surgery Sports Medicine Clinic Note Reason for Visit/Chief Complaint: Right shoulder pain/Follow-up History of present illness: Linwood Ryan is a 79 y.o. male who presents today as a follow-up for evaluation of right shoulder. Patient had a fall in March and had acute right shoulder pain. He had anMRI which demonstrated a full-thickness rotator cuff tear retracted with some mild fatty atrophy. Patient continues with physical therapy per the [facility] protocol and reports that he is doing well. He re cently took a vacation so he has not been doing his exercises for the past couple of weeks. His only complaint is some night time pain that makes it difficult to sleep,. Objective: Constitutional: Well developed, well nourished, no acute distress HEENT: mucous membranes moist, normocephalic atraumatic Psychologic: appropriate mood and affect Chest: bilateral chest elevations, symmetric Cardiovascular: pink extremities, peripheral perfusion intact Respiratory: no respiratory distress, nonlabored on room air Abdomen: soft, nontender Neurologic: orientation to person, place and time Right SHOULDER EXAM There is no cervical tenderness and negative Spurling's. No obvious atrophy or deformity. No scapular dyskinesia. Patient has tenderness about the anterolateral shoulder. Active elevation is 60?? passive to 150, external rotation at the side 60??, internal rotation to back pocket. There is pain with elevation and resisted strength testing. There is pain with resisted external rotation. There is moderate weakness to supraspinatus testing, mild weakness to external rotation. Lift-off test is normal. The patient has a painful arc of abduction and positive impingement signs. There is a negative speed's test and negative Yergason's test. There is no significant pain with cross-arm adduction. No signs of instability or apprehension. Distal neurovascular exam is normal. The patient has a warm and well-perfused upper extremity with capillary refill less than 2 seconds.Sensation is intact to light touch in terminal nerve distributions. The patient has no palpable epitrochlear lymphadenopathy. Imaging: No new imaging, previous images reviewed: X-Rays: Personally reviewed radiographs from an outside facility which demonstrates mild degenerative glenohumeral and acromioclavicular joint space changes with humeral head aligned at the glenoid. No evidence of fracture. MRI: MRI Right shoulder from 05/14/2024 shows a relatively large full thickness rotator cuff tear involving the supraspinatus and infraspinatus, suspicion for a superior border subscapularis tear. Teres minor and lower boarder subscap intact, biceps is centered and in groove with fluid in the sheath. Mild arthritic changes present. There is about 40-50% fatty infiltrate of the supraspinatus, mild fattyinfiltrate of the infraspinatus. Patient ID: Linwood Ryan is a 79 y.o. male. Encounter Diagnosis Name Primary? Traumatic complete tear of right rotator cuff, subsequent encounter Yes Injection - Large Joint: R subacromial bursa on 10/15/2024 2:00 PM Indications: pain Details: 22 G needle, lateral approach Medications: 5 mL bupivacaine 0.5 %; 5 mL lidocaine 1 %; 80 mg Kenalog-40 40 MG/ML Procedure, treatment alternatives, risks and benefits explained, specific risks discussed. Consent was given by the patient. Immediately prior to procedure a time out was called to verify the correctpatient, procedure, equipment, support group manager and site/side marked as required. Patient was prepped and draped in the usual sterile fashion. Assessment/Plan Linwood Ryan is a 79-year-old male seen for follow-up right shoulder with right shoulder pain after afall with an MRI showing a full thickness rotator cuff tear with retraction to the middle of the humeral head. He has done well with conservative treatment including physical therapy and activity modification. Therefore will continue conservative management. His only complaint is night time pain. We discusseddifferent treatment options. Decision was made to proceed with a right shoulder subacromial injection. I discussed risks and benefits of the injection which include but are not limited to: bleeding, infection, stiffness, and continued pain. Informed consent was obtained. The patient agreed to proceed with the injection. The injection was tolerated well without complication. See procedure note. He tolerated the injection well. Continue PT following [facility] Therapist Guided Protocol Follow-up in 3 months Cosigned by Cesar Henry MD at 10/17/2024 6:12 PM EDT Associated attestation - Cesar Henry MD - 10/17/2024 6:12 PM EDT I saw and evaluated the patient with the resident/fellow. I discussed the case with the resident/fellow and agree with the findings and plan as documented. I personally performed the right shoulder subacromial injection. documented in this encounter Plan of Treatment Upcoming Encounters Date Type Department Care Team (Late st Contact Info) Description 01/16/2025 12:40 PM EDT Office Visit [facility] [address], [address] [place] [id number] Cesar Henry MD [address] [place] [id number] 07/15/2025 1:20 PM EDT Office Visit [facility] [place] [address] [place] [address] Melvin Mcgarry MD [address] [place] [address] documented as of this encounter Procedures Procedure Name Priority Date/Time Associated Diagnosis Comments [place] ARTHROCENTESIS ASPIR&/INJ MAJOR JT/BURSA W/O US Routine 10/15/2024 2:00 PM EDT Traumatic complete tear of right rotator cuff, subsequent encounter documented in this encounter Results * [place] ARTHROCENTESIS ASPIR&/INJ MAJOR JT/BURSA W/O US (10/15/2024 2:00 PM EDT) Narrative Cesar Henry MD - 10/15/2024 2:00 PM EDT Cesar Henry MD 10/17/2024 6:12 PM Injection - Large Joint: R subacromial bursa on 10/15/2024 2:00 PM Indications: pain Details: 22 G needle, lateral approach Medications: 5 mL bupivacaine 0.5 %; 5 mL lidocaine 1 %; 80 mg Kenalog-40 40 MG/ML Procedure, treatment alternatives, risks and benefits explained, specific risks discussed. Consent was given by the patient. Immediately prior to procedure a time out was called to verify the correct patient, procedure, equipment, support group manager and site/side marked as required. Patient was prepped and draped in the usual sterile fashion. Cesar Henry MD IN CLINIC/BEDSIDE ORDERABLES Fin al Result documented in this encounter Visit Diagnoses Diagnosis Traumatic complete tear of right rotator cuff, subsequent encounter- Primary documented in this encounter Administered Medications Inactive Administered Medications - up to 3 most recent administrations Medication Order MAR Action Action Date Dose Rate Site bupivacaine (Marcaine) 0.5 % injection 5 mL 5 mL, Injection, Once PRN Procedure, 1 dose, Starting on 10/15/24 at 1400, Until 10/15/24 at 1400, RoutineIndications:Traumatic complete tear of right rotator cuff, subsequent encounter Given 10/15/2024 2:00 PM EDT 5 mL lidocaine (Xylocaine) 1 % injection 5 mL 5 mL, Intra-articular, Once PRN Procedure, 1 dose, Starting on 10/15/24 at 1400, Until 10/15/24 at 1400, RoutineIndications:Traumatic complete tear of right rotator cuff, subsequent encounter Given 10/15/2024 2:00 PM EDT 5 mL triamcinolone acetonide (Kenalog-40) injection 80 mg 80 mg, Intra-articular, Once PRN Procedure, 1 dose, Starting on 10/15/24 at 1400, Until 10/15/24 at 1400, RoutineIndications:Traumatic complete tear of right rotator cuff, subsequent encounter Given 10/15/2024 2:00 PM EDT 80 mg documented in this encounter Additional Health Concerns Assessment Noted Time PHQ-9 Depression Total Score: 0 07/17/19 25 1:21 PM EDT A fall risk assessment has been complete d for the patient 10/15/2024 12:57 PM EDT A Body Mass Index follow-up plan has been documented for the patient 10/17/2024 6:13 PM EDT documented as of this encounter Care Teams High Voltage Electrician Relationship Specialty Start Date End Date Freddie Burgos MD [address] [place] [address] PCP - General Internal Medicine 08/04/23 documented as of this encounter
--- OUTSIDE RECORDS SUMMARY | 2024-11-25 12:04 | XMS_ITS | Clinical Summary ---
Author Organization [facility] Address [address] [place] [address] Care Team Providers Care Orchestrator Name Role Phone Freddie Burgos MD Primary Care Provider [phone] Medications Sod Picosulfate-Mag Ox-Cit Acd 10-3.5-12 MG-GM -GM/160ML solutionIndicat ions:Screening for colon cancer Take 160 mL by mouth Take As Directed. Follow instructions that were mailed to your home. If you didn't receive these call [phone]. 320 mL 2 Active Social History Tobacco Use Types Packs/Day Years Used Date Smoking Tobacco: Never Assessed Abuse Screen Answer Date Recorded Unsafe at Home or Work/School Not on file Feels Threatened by Someone? Not on file 12/2022 Does Anyone Keep You from Co ntacting Others or Doint Things Outside the Home? Not on file 12/27/2022 Physical Sign of Abuse Present Not on file 1 Housing Stability Answer Date Recorded Current Living Arrangements Not on file 12/18 Potentially Unsafe Housing Conditions Not on wai e 12/27/2022 Family and Community Support Answer Armando e Recorded Help with Day-to-Day Activities Not on file 12/27/2022 Lonely or Isolated Not on file 12/27/2022 Employment Answer Date Recorded Do you want help finding or keeping work or a steffany b? Not on file 12/27/2022 Disabilities Answer Date Recorded Concentrating, Remembering, or Making Decisions Difficulty Not on file 12/27/2022 Doing Errands Independently Difficulty Not on fi le 12/27/2022 Education Answer Date Recorded Help with school or training? Not on file Preferred Language Not on file 12/27/2022 Sex and Gender Information Value Date Recorded Sex Assigned at Not on file Legal Sex Male 1:40 PM EDT Gender Identity Not on file Sexual Orientation Not on file Plan of Treatment Health Maintenance Due Date Last Done Comments TDAP/TD VACCINES (1 - Tdap) 1964 Pneumococcal Vaccine 50+ (1 of 1 - PCV) 09/09/1995 ZOSTER VACCINE (1 of 2) 09/09/1995 ANNUAL PHYSICAL 07/20/2018 HEPATITIS C SCREENING 07/20/2018 RSV Vaccine - Adults (1 - 1- dose 75+ series) 2020 COVID-19 Vaccine (1 - 2023- season) 2024 INFLUENZA VACCINE 12/18/2024 COLONOSCOPY Discontinued 07/19/2021, 08/09/2018 COLORECTAL CANCER SCREENING Discontinued COLOGUARD Discontinued COLON CANCER SCREENING 5 YEA R SIGMOID[address]COPY Discontinued CT COLONOGRAPHY Discontinued FECAL OCCULT BLOOD TEST Discontinued FIT Testing (1 year) Discontinued Procedures Procedure Name Priority Date/Time Associated Diagnosis Comments SCANNED - COLONOSCOPY 07/19/2021 from Last 3 Months or Most Recently Relevant to Health Maintenance Results * SCANNED - COLONOSCOPY (07/19/2021) Wali Grnat MD CHART REVIEW TABS Final Res ult from Last 3 Months or Most Recently Relevant to Health Maintenance Insurance MEDICARE A & B Care Teams Orchestrator Relationship Specialty Start Date End Date Freddie Burgos MD [address] [place] [address] [address] PCP - General Adolescent Medicine 07/20/18
--- OUTSIDE RECORDS SUMMARY | 2024-11-25 12:04 | XMS_ITS | Encounter Summary ---
Author Organization [facility] Address [address] [place] [address] Care Team Providers Care Ecmo Specialist Name Role Phone Freddie Burgos MD Primary Care Provider [phone] Reason for Referral * Consultation (Routine) - Closed Specialty Diagnoses / Procedures Referred By Contac t Referred To Contact Sports Medicine Diagnoses Arthritis of shoulder region, right Acute pain of right shoulder Fall in home, initial encounter Freddie Burgos MD [address] [facility] [address] [place] [address] Phone: tel: fax: Cesar Henry MD [address] [place] [phone] Phone: tel: fax: Referral ID Status Reason Start Date Expiration Date V isits Requested Visits Authorized [id number] Closed Specialty Services Required 04/05/2024 10/05/2025 1 1 Encounter Details Date Type Department Care Team (Late st Contact Info) Description 04/05/2024 [facility] [address] [place] [address] Freddie Burgos MD [address] [facility] [address] [facility] [address] [place] [address] Arthritis of shoulder region, right (Primary Dx); Acute pain of right shoulder; Fall in home, initial encounter Social History Tobacco Use Types Packs/Day Years Used Date Smoking Tobacco: Never Passive Smoke Exposure: Never Smokeless Tobacco: Never Alcohol Use Standard Drinks/Week Comments Not Currently 0 (1 standard drink = 0.6 oz pure alcohol) Alcoholic Drinks/day: Social alcohol use PHQ-2 Answer Date Recorded Patient Health Questionnaire-2 Score 0 10/26/2023 CAGE ASSESSMENT Answer Date Recorded Cage unable [...] drink first t laura in the morning (EYE-COMMUNITY RELATIONS ADVISOR) to steady your nerves or to get rid of a hangover? 0 09/16/2022 CAGE Questionnaire Score 0 023 Sex and Gender Information Value Date Recorded Sex Assigned at Male 09/17/2022 6:42 PM EDT Legal Sex Male 8:05 PM EDT Gender Identity Male 09/17/2022 6:42 PM EDT Sexual Orientation Straight 09/17/2022 6: 42 PM EDT documented as of this encounter Plan of Treatment Upcoming Encounters Date Type Department Care Team (Late st Contact Info) Description 01/16/2025 12:40 PM EDT Office Visit [facility] Orthopaedic Surgery & Sports Medicine [address], [address] [place] [address] Cesar Henry MD [address] [facility] [address] [place] [address] 07/15/2025 1:20 PM EDT Office Visit [facility] [place] [address] [facility] [place] [address] Melvin Mcgarry MD [address] [place] [address] Scheduled Referrals Name Type Priority Associated Diagnoses Order Schedule Ambulatory referral to General Orthopaedics Outpatient Referral Routine Arthritis of shoulder region, right Acute pain of right shoulder Fall in home, initial encounter Expected: 04/05/2024 (Approximate), Expires: 10/03/2025 documented as of this encounter Visit Diagnoses Diagnosis Arthritis of shoulder region, right- Primary Acute pain of right shoulder Fall in home, initial encounter documented in this encounter Additional Health Concerns Assessment Noted Time A fall risk assessment has been complete d for the patient 11/07/2023 1:53 PM EDT A Body Mass Index follow-up plan has been documented for the patient 11/07/2023 2:14 PM EDT documented as of this encounter Care Teams Ecmo Specialist Relationship Specialty Start Date End Date Freddie Burgos MD [address] [place] [address] PCP - General Internal Medicine 08/04/23 documented as of this encounter
--- OUTSIDE RECORDS SUMMARY | 2024-11-25 12:04 | XMS_ITS | Clinical Summary ---
Author Organization [facility] Address [address] [place] [address] Care Team Providers Care Speech Language Assistant Name Role Phone Freddie Burgos MD Primary Care Provider [phone] Allergies Active Allergy Reactions Criticality Noted Date Comments Amoxicillin-Pot Clavulanate Unknown - Pa tient states they do not know rxn details Low 05/31/2020 Penicillins Unknown - Patient st ates they do not know rxn details Low 05/31/2020 Medications pregabalin (Lyrica) 50 MG capsule Take 1 capsule (50 mg) by mouth. Takes 1 capsule in AM and 2 capsules in PM Active ascorbic acid (Vitamin C) 500 MG tablet Take by mouth. Activ e coenzyme Q-10 100 MG capsule See administration instructions. 06/01/19 21 Active folic acid (Folvite) 1 MG tablet Take 1 tablet (1,000 mcg) by mouth Daily. 06/01/19 21 Active zinc gluconate 50 MG tablet Take 1 tablet (50 mg) by mouth 1 (one) time each day. 06/03/19 21 Active losartan (Cozaar) 25 MG tabletIndication s:Essential hypertension Take 1 tablet (25 mg) by mouth 1 (one) time each day. 90 tablet 04/25/19 24 Active metoprolol succinate XL (Toprol-XL) 50 MG 24 hr tablet Take 1 tablet by mouth 2 times a day. Do not crush or chew. 180 tablet 3 07/17/19 25 026 Active Active Problems Problem Noted Date Diagnosed Date Sebaceous cyst 08/04/2023 Exertional shortness of breath 08/04/2023 Venous insufficiency 08/04/2023 Varicose veins of bilateral lower extremities wi th pain 08/04/2023 Diminished pulse 08/04/2023 Essential (primary) hypertension 08/04/2023 Lymphedema 08/04/2023 Atrial fibrillation 12/13/2022 Atrial premature contractions 07/14/2020 Atrial tachycardia 07/14/2020 Neuropathy 05/31/2020 Afib 05/31/2020 Resolved Problems Problem Noted Date Diagnosed Date Resolved Date Paroxysmal atrial fibrillation 09/21/2022 10/23/2023 Frequent headaches 05/31/2020 Encounters Date Type Department Care Team Description 10/15/2024 1:40 PM EDT Office Visit [facility] Orthopaedic Surgery & Sports Medicine [address] [place] [address] Cesar Henry MD Traumatic complete tear of right rotator cuff, subsequent encounter (Primary Dx) 10/15/2024 Travel 10/12/2024 Travel from Last 3 Months Family History Medical History Relation Name Comments Anxiety disorder Sister Relation Name Status Comments Sister Social History Tobacco Use Types Packs/Day Years Used Date Smoking Tobacco: Former Cigarettes 1 2 1 966 - 1967 Passive Smoke Exposure: Never Smokeless Tobacco: [...] drink first t laura in the morning (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 0 09/16/2022 CAGE Questionnaire Score 0 023 Sex and Gender Information Value Date Recorded Sex Assigned at Male 09/17/2022 6:42 PM EDT Legal Sex Male 8:05 PM EDT Gender Identity Male 09/17/2022 6:42 PM EDT Sexual Orientation Straight 09/17/2022 6: 42 PM EDT Last Filed Vital Signs Vital Sign Reading Time Taken Comments Blood Pressure 173/86 10/15/2024 12:57 PM EDT Pulse 62 07/16/2024 1:10 PM EDT Temperature 36.2 C (97.2 F) 11/07/2023 1:49 PM EDT Respiratory Rate 18 10/26/2023 1:28 PM EDT Oxygen Saturation 95% 07/16/2024 1:10 PM EDT Inhaled Oxygen Concentration - - Weight 111 kg (245 lb) 10/15/2024 12:57 PM EDT Height 182.9 cm (6') 10/15/2024 12:57 PM EDT Body Mass Index 33.23 10/15/2024 12:57 PM EDT Plan of Treatment Upcoming Encounters Date Type Department Care Team (Late st Contact Info) Description 01/16/2025 12:40 PM EDT Office Visit [facility] Orthopaedic Surgery & Sports Medicine [address] [facility], [address] [place] [address] Cesar Henry MD [address] [place] [address] 07/15/2025 1:20 PM EDT Office Visit [facility] [place] [address] [facility] [place] [address] Melvin Mcgarry MD [address] [place] [address] Health Maintenance Due Date Last Done Comments [facility]-Hepatitis C Screening 1945 [facility]-Medicare Annual Wellness (AWV) 1945 [facility]-Infant/Child/Adol SDOH Screenings 1945 [id number] Vaccine (#1) 1950 [facility]- SDOH Screenings 09/09/1963 [facility]-Adult SDOH Screenings 09/09/1963 [facility]-DTaP,Tdap,and Td Vaccines (1 - Tdap) 1964 [facility]-Pneumococcal Vaccine: 50+ Years (1 of 1 - PCV) 09/09/1995 [facility]-Zoster Vaccines (1 of 2) 09/09/1995 [facility]-RSV Vaccine: 60+ Years or (1 - 1-dose 75+ series) 2020 [facility]-Influenza Vaccine (#1) 2024 [facility]-Depression Screening 07/16/2025 07/16/2024, 06/19 [facility]-Obesity Intervention Completed 025, 07/16/2024, 07/09/2024, Additional history exists HPV Vaccines Aged Out No longer eligi ble based on patient's age to complete this topic [facility]-HIB Vaccines Aged Out No longer e ligible based on patient's age to complete this topic [facility]-Hepatitis A Vaccines Aged Out No longer eligible based on patient's age to complete this topic [facility]-IPV Vaccines Aged Out No longer e ligible based on patient's age to complete this topic [facility]-Rotavirus Vaccines Aged Out No lo nger eligible based on patient's age to complete this topic Procedures Procedure Name Priority Date/Time Associated Diagnosis Comments IA ARTHROCENTESIS ASPIR&/INJ MAJOR JT/BURSA W/O US Routine 10/15/2024 2:00 PM EDT Traumatic complete tear of right rotator cuff, subsequent encounter from Last 3 Months Results * IA ARTHROCENTESIS ASPIR&/INJ MAJOR JT/BURSA W/O US (10/15/2024 [...] to verify the correct patient, procedure, equipment, call center support representative and site/side marked as required. Patient was prepped and draped in the usual sterile fashion. Cesar Henry MD IN CLINIC/BEDSIDE ORDERABLES Fin al Result from Last 3 Months Insurance MEDICARE [facility] Advance Directives * Full Code (Latest Code Status on File) Date Activated Date Inactivated Comments 01/27/2023 4:47 PM 01/27/2023 9:18 PM Question Answer Comments Patient has decision-making capacity? Yes Care Teams Speech Language Assistant Relationship Specialty Start Date End Date Freddie Burgos MD [address] [place] [address] PCP - General Internal Medicine 08/04/23
--- OUTSIDE RECORDS SUMMARY | 2024-11-25 12:04 | XMS_ITS | Encounter Summary ---
Author Organization [facility] Address [address] [place] [address] Care Team Providers Care Spooler Operator Automatic Name Role Phone Freddie Burgos MD Primary Care Provider [phone] Encounter Details Date Type Department Care Team (Latest Contact Info) Description 10/15/2024 Travel Social History Tobacco Use Types Packs/Day Years Used Date Smoking Tobacco: Former Cigarettes 1 1967 Passive Smoke Exposure: Never Smokeless Tobacco: [...] drink first t laura in the morning (EYE-BISCUIT MAKER) to steady your nerves or to get [...] Description 01/16/2025 12:40 PM EDT Office Visit [facility] Orthopaedic Surgery & Sports Medicine [address] [facility], [address] [place] [address] Cesar Henry MD [address] [place] [address] 07/15/2025 1:20 PM EDT Office Visit [facility] [place] [address] [place] [address] Melvin Mcgarry MD [address] [place] [address] documented as of this encounter Visit Diagnoses Not on filedocumented in this encounter Additional Health Concerns Assessment Noted Time PHQ-9 Depression Total Score: 0 07/17/19 25 1:21 PM EDT A fall risk assessment has been complete d for the patient 10/15/2024 12:57 PM EDT A Body Mass Index follow-up plan has been documented for the patient 10/17/2024 6:13 PM EDT documented as of this encounter Care Teams Spooler Operator Automatic Relationship Specialty Start Date End Date Freddie Burgos MD [address] [place] [address] PCP - General Internal Medicine 08/04/23 documented as of this encounter
--- OUTSIDE RECORDS SUMMARY | 2024-11-25 12:04 | XMS_ITS | Encounter Summary ---
Author Organization [facility] Address [address] [place] [address] Care Team Providers Care Patient Support Specialist Name Role Phone Freddie Burgos MD Primary Care Provider [phone] Encounter Details Date Type Department Care Team (Latest Contact Info) Description 10/12/2024 Travel Social History Tobacco Use Types Packs/Day [...] drink first t laura in the morning (EYE-DIRECTOR OF NUCLEAR MEDICINE) to steady your nerves or to get [...] 01/16/2025 12:40 PM EDT Office Visit [facility] Orthopaedic Surgery & Sports Medicine [address] [facility], [address] [place] [address] Cesar Henry MD [address] [place] [address] 07/15/2025 1:20 PM EDT Office Visit [facility] [place] [address] [place] [address] Melvin Mcgarry MD [address] [place] [address] documented as of this encounter Visit Diagnoses Not on filedocumented in this encounter Additional Health Concerns Assessment Noted Time PHQ-9 Depression Total Score: 0 07/17/19 25 1:21 PM EDT A fall risk assessment has been complete d for the patient 07/16/2024 1:21 PM EDT A Body Mass Index follow-up plan has been documented for the patient 07/16/2024 1:58 PM EDT documented as of this encounter Care Teams Patient Support Specialist Relationship Specialty Start Date End Date Freddie Burgos MD [address] [place] [address] PCP - General Internal Medicine 08/04/23 documented as of this encounter
[2024-11-25 13:05] LABS: Hematocrit 44.2 % (42.0-52.0); Hemoglobin 14.5 g/dL (14.1-18.0); Immature Granulocytes % 0.4 %; Mean Corpuscular HGB Conc 32.8 g/dL (31.8-35.4); Mean Corpuscular Hemoglobin 31.0 pg (27.0-31.2); Mean Corpuscular Volume 94.6 fl (80-94); Nucleated Red Blood Cells % 0 %; Platelet Count 202 K/mm3 (142-424); Red Blood Count 4.67 M/mm3 (4.60-6.20); Red Cell Distribution Width-SD 51.1 fL; White Blood Count 7.5 K/mm3 (4.8-10.8)
[2024-11-25 13:14] LABS: Albumin Level 4.1 g/dl (3.5-5.0); Chloride 103 mmol/L (98-107); Potassium 4.5 mmoL/L (3.5-5.1); Sodium 138 mmol/L (136-145)
[2024-11-25 13:17] LABS: Alanine Aminotransferase 20 U/L (12-78); Albumin/Globulin Ratio 1.6 (1.1-1.8); Anion Gap 10.5 mEq/L (5-15); Aspartate Amino Transferase 27 U/L (17-59); Blood Urea Nitrogen 14 mg/dl (9-20); Carbon Dioxide 29 mmol/L (22.0-30.0); Creatinine,Serum 0.80 mg/dl (0.66-1.25); Estimated Glomerular Filt Rate 93 ml/min (>60); GFR (African American) 113 ML/MIN (>60); Globulin 2.6 g/dL (1.3-3.2); Total Protein,Serum 6.7 g/dl (6.3-8.2)
[2024-11-25 13:18] LABS: Alkaline Phosphatase 46 U/L (38-126); Bilirubin,Total 0.4 mg/dl (0.2-1.3); Calcium 9.6 mg/dl (8.4-10.2); Glucose 102 mg/dl (74-100)
== END 2024-11-25 23:59 | disposition home or self-care (01) ==
LOC: LAB 12:02
PROVIDERS: PCP Internal Medicine Adolescent Medicine; Visit Provider Dermatology
DX: Z79.899 Other long term (current) drug therapy (principal)
CPT/HCPCS: 36415; 80053; 85025

== ENCOUNTER 2025-01-01 10:45 | Outpatient (CLI) | payer MEDICARE, OTHER, SELFPAY ==
--- OUTSIDE RECORDS SUMMARY | 2025-01-01 10:51 | XMS_ITS | Clinical Summary ---
Author Organization [employer] ([place], [place], [place], [place]) Address [address] [place] [address] Care Team Providers Care Greenkeeper Name Role Phone Freddie Burgos MD Primary Care Provider [phone] Day Tolliver MD Unavailable [phone] Allergies Active Allergy Reactions Criticality Noted Date Comments Amoxicillin Other (See Comments) 07/01/2024 Passed out Penicillin Other (See Comments) 07/01/2024 Reaction unknown Medications losartan (COZAAR) 50 MG tablet Take 1 tablet (50 mg total) by mouth daily. 06/17/2024 Active pregabalin (LYRICA) 50 MG capsule Take 1 capsule (50 mg total) by mouth 2 (two) times daily as needed. Active metoprolol succinate (TOPROL-XL) 50 MG 24 hr tablet Take 1 tablet (50 mg total) by mouth daily. Active Active Problems No known active problems Encounters Date Type Department Care Team Description 10/16/2024 1:00 PM EDT Office Visit [facility] Orthopedics - [address] [place] [address] Day Tolliver MD Carpal tunnel syndrome, bilateral (Primary Dx); Arthritis of wrist, right, degenerative from Last 3 Months Family History Medical History Relation Name Comments Arthritis Other Heart disease Other Relation Name Status Comments Other Social History Tobacco Use Types Packs/Day Years Used Date Smoking Tobacco: Never Smokeless Tobacco: Never Tobacco Cessation:Counseling Given: Not Answered Alcohol Use Standard Drinks/Week Comments Yes 0 (1 standard drink = 0.6 oz pur e alcohol) Sex and Gender Information Value Date Recorded Sex Assigned at Not on file Legal Sex Male 4:53 PM CDT Gender Identity Not on file Sexual Orientation Not on file Last Filed Vital Signs Vital Sign Reading Time Taken Comments Blood Pressure 147/87 10/16/2024 1:28 PM EDT Pulse 68 10/16/2024 1:28 PM EDT Temperature - - Respiratory Rate - - Oxygen Saturation - - Inhaled Oxygen Concentration - - Weight 113.4 kg (250 lb) 10/16/2024 1:27 PM EDT Height 182.9 cm (6') 10/16/2024 1:27 PM EDT Body Mass Index 33.91 10/16/2024 1:27 PM EDT Plan of Treatment Upcoming Encounters Date Type Department Care Team (Late st Contact Info) Description 01/22/2025 10:30 AM EST Office Visit [facility] Orthopedics - [address] [place] [address] Day Tolliver MD [address] [place] [address] Health Maintenance Due Date Last Done Comments Depression Screening (12+) 1957 Hepatitis C Screening 09/09/1963 DTAP/TDAP/TD VACCINES (1 - Tdap) 1964 Pneumococcal 50+ years (1 of 1 - PCV) 09/09/1995 Shingles Vaccine (Zoster) (1 of 2) 09/09/1995 Medicare Initial AWV [id number] 08/20/2011 Respiratory Syncytial Virus (RSV) Adult or (1 - 1-dose 75+ series) 2020 Falls Risk Screening 03/20/2024 COVID-19 VACCINE (1 - 2023- season) 2024 Influenza Vaccine (#1) 2024 Tobacco Cessation Counseling and Screening (12+) 10/1610/16/2024 Procedures Procedure Name Priority Date/Time Associated Diagnosis Comments FS_SJH_MODEL GENERAL FORM Routine 10/16/2024 1:48 PM EDT Carpal tunnel syndrome, bilateral Arthritis of wrist, right, degenerative from Last 3 Months Results * Bilateral carpal tunnel injections and right radio- scaphoid joint injection (10/16/2024 1:48 PM EDT) Day Phillips MD - 10/16/2024 1:48 PM EDT Day Tolliver MD 10/16/2024 1:50 PM Bilateral carpal tunnel injections and right radio- scaphoid joint injection Date/Time: 10/16/2024 1:48 PM Performed by: Day Tolliver MD Authorized by: Day Tolliver MD Consent: Consent obtained: Verbal and written Consent given by: Patient Risks, benefits, and alternatives were discussed: yes Risks discussed: Bleeding, infection, pain, incomplete drainage, nerve damage and poor cosmetic result [place] protocol: Procedure explained and questions answered to patient or proxy's satisfaction: yes Relevant documents present and verified: yes Test results available: yes Imaging studies available: yes Site/side marked: yes Immediately prior to procedure, a time out was called: yes Patient identity confirmed: Verbally with patient Pre-procedure details: Preparation: Patient was prepped and draped in the usual sterile fashion Sedation: Sedation type: None Anesthesia: Anesthesia method: Topical application (See MAR) Procedure specific details: Bilateral Carpal Tunnel injections We discussed conservative treatment with Kenalog injections which can take several days for effect. Transient numbness in the hand was discussed post injection which will resolve in a few hours. Each hand was laid in the supine position. 1 ml of 1% Lidocaine and Kenalog 10mg were injected ulnar to the palmaris longus tendon (in the soft indentation of the volar wrist) after the skin was prepped with adequately with alcohol. A sterile bandaid was applied. Right radio-scaphoid joint injection The hand was positioned in the prone position with the dorsal wrist pointing dorsally. The radioscaphoid joint was prepped with alcohol swabs. The RSJ was identified in the dorsal wrist crease just distal and medial to the radial styloid. The RSJ was injected with 1ml of 1% lidocaine and Kenalog 10mg. Effects from the injection may take several days to be noticeable. Contact the office in 2 weeks if absolutely no improvement noted. Post-procedure details: Procedure completion: Tolerated well, no immediate complications us Day Tolliver MD PROCEDURE/MINOR SURGICAL ORDERABLES Final Result from Last 3 Months Insurance MEDICARE PART A B Care Teams Greenkeeper Relationship Specialty Start Date End Date Freddie Burgos MD [address] [place] [address] PCP - General Adolescent Medicine 06/17/24 Day Tolliver MD [address] [place] [address] Consulting Physician Orthopedic Surgery - Hand 10/15/24
--- OUTSIDE RECORDS SUMMARY | 2025-01-01 10:51 | XMS_ITS | Referral Summary ---
Author Organization [employer] ([place], [place], [place], [place]) Address [address] [place] [address] Care Team Providers Care Piece Meat Trimmer Name Role Phone Freddie Burgos MD Primary Care Provider [phone] Day Tolliver MD Unavailable [phone] Encounters Date Type Department Care Team Description 10/16/2024 1:00 PM EDT Office Visit [facility] Orthopedics - [address] [place] [address] Day Tolliver MD Carpal tunnel syndrome, bilateral (Primary Dx); Arthritis of wrist, right, degenerative from Last 3 Months Allergies Active Allergy Reactions Criticality Noted Date [...] Active Active Problems No known active problems Social History Tobacco Use Types Packs/Day Years [...] Description 01/22/2025 10:30 AM EST Office Visit [facility] Orthopedics - [address] [place] [address] Day Tolliver MD [address] [place] [address] Procedures Procedure Name Priority Date/Time Associated Diagnosis Comments FS_SJH_MODEL GENERAL FORM Routine 10/16/2024 1:48 PM EDT Carpal tunnel syndrome, bilateral Arthritis of wrist, right, degenerative from Last 3 Months Results * Bilateral carpal tunnel injections and right radio- scaphoid joint injection (10/16/2024 1:48 PM EDT) Narrative Day Tolliver MD - 10/16/2024 1:48 PM EDT Day [...] drainage, nerve damage and poor cosmetic result [place] protocol: Procedure explained and questions answered to [...] Procedure completion: Tolerated well, no immediate complications Day Tolliver MD PROCEDURE/MINOR SURGICAL ORDERABLES Final Result from Last 3 Months Insurance MEDICARE PART A B Care Teams Piece Meat Trimmer Relationship Specialty Start Date End Date Freddie Burgos MD [address] [place] [address] PCP - General Adolescent Medicine 06/17/24 Day Tolliver MD [address] [place] [address] Consulting Physician Orthopedic Surgery - Hand 10/15/24
--- OUTSIDE RECORDS SUMMARY | 2025-01-01 10:51 | XMS_ITS | Encounter Summary ---
Author Organization [facility] Address [address] [place] [address] Care Team Providers Care Iron Miner Blasting Name Role Phone Freddie Burgos MD Primary Care Provider [phone] Reason for Referral * Consultation (Routine) - Closed Specialty Diagnoses / Procedures Referred By Contac t Referred To Contact Sports Medicine Diagnoses Arthritis of shoulder region, right Acute pain of right shoulder Fall in home, initial encounter Freddie Burgos MD [address] [facility] [address] [place] [address] Phone: tel: fax: Cesar Henry MD [address] [place] [phone] Phone: tel: fax: Referral ID Status Reason Start Date Expiration Date V isits Requested Visits Authorized [id number] Closed Specialty Services Required 04/05/2024 10/05/2025 1 1 Encounter Details Date Type Department Care Team (Late st Contact Info) Description 04/05/2024 Community [facility] [address] [place] [address] Freddie Burgos MD [address] [facility] [address] [facility] [address] [place] [address] Arthritis of shoulder region, right (Primary Dx); [...] drink first t laura in the morning (EYE-SUPERVISOR ADULT EDUCATION) to steady your nerves or to get [...] Description 01/16/2025 12:40 PM EDT Office Visit [facility] [address], [address] [place] [address] Cesar Henry MD [address] [facility] [address] [place] [phone] 07/15/2025 1:20 PM EDT Office Visit [facility] [place] [address] [facility] [place] [address] Melvin Mcgarry MD [address] [place] [phone] Scheduled Referrals Name Type Priority Associated Diagnoses [...] documented as of this encounter Care Teams Iron Miner Blasting Relationship Specialty Start Date End Date Freddie Burgos MD [address] [place] [address] PCP - General Internal Medicine 08/04/23 documented as of this encounter
--- OUTSIDE RECORDS SUMMARY | 2025-01-01 10:51 | XMS_ITS | Clinical Summary ---
Author Organization [facility] Address [address] [place] [address] Care Team Providers Care Media Center Director School Name Role Phone Freddie Burgos MD Primary Care Provider [phone] Allergies Active Allergy Reactions Criticality Noted Date [...] Description 10/15/2024 1:40 PM EDT Office Visit [facility] Orthopa[facility] Surgery [facility] Medicine [address] [place] [address] Cesar Henry MD Traumatic complete [...] drink first t laura in the morning (EYE-COLORING ROOM MAN) to steady your nerves or to get [...] Description 01/16/2025 12:40 PM EDT Office Visit [facility] Medicine [address] [facility], [address] [place] [phone] Cesar Henry MD [address] [place] [phone] 07/15/2025 1:20 PM EDT Office Visit [facility] [place] [address] [facility] [place] [address] Melvin Mcgarry MD [address] [place] [phone] Health Maintenance Due Date Last Done Comments [facility]-Hepatitis C Screening 1945 [facility]-Medicare Annual Wellness (AWV) 1945 [facility]-Infant/Child/Adol SDOH Screenings 1945 [id number] Vaccine (#1) 1950 [facility]- SDOH Screenings 09/09/1963 [...] Procedure Name Priority Date/Time Associated Diagnosis Comments RI ARTHROCENTESIS ASPIR&/INJ MAJOR JT/BURSA W/O US Routine 10/15/2024 2:00 PM EDT Traumatic complete tear of right rotator cuff, subsequent encounter from Last 3 Months Results * RI ARTHROCENTESIS ASPIR&/INJ MAJOR JT/BURSA W/O US (10/15/2024 [...] to verify the correct patient, procedure, equipment, account support manager and site/side marked as required. Patient was prepped and draped in the usual sterile fashion. Cesar Henry MD IN CLINIC/BEDSIDE ORDERABLES Fin al Result from Last 3 Months Insurance MEDICARE [facility] Advance Directives * Full Code (Latest Code Status on File) Date Activated Date Inactivated Comments 01/27/2023 4:47 PM 01/27/2023 9:18 PM Question Answer Comments Patient has decision-making capacity? Yes Care Teams Media Center Director School Relationship Specialty Start Date End Date Freddie Burgos MD [address] [place] [address] PCP - General Internal Medicine 08/04/23
--- OUTSIDE RECORDS SUMMARY | 2025-01-01 10:51 | XMS_ITS | Clinical Summary ---
Author Organization [facility] Address [address] [place] [address] Care Team Providers Care Facsimile Operator Name Role Phone Freddie Burgos MD Primary Care Provider [phone] Medications Sod Picosulfate-Mag Ox-Cit Acd 10-3.5-12 MG-GM -GM/160ML solutionIndicat ions:Screening for colon cancer Take 160 mL by mouth Take As Directed. Follow instructions that were mailed to your home. If you didn't receive these call [phone]. 320 mL 2 Active Social History Tobacco [...] (1 - 1- dose 75+ series) 2020 INFLUENZA VACCINE 10/18/2024 COVID-19 Vaccine (1 - 2023- season) 2024 COLONOSCOPY Discontinued 07/19/2021, 08/09/2018 COLORECTAL CANCER SCREENING Discontinued COLOGUARD Discontinued COLON CANCER SCREENING 5 YEA R SIGMOIDOSCOPY Discontinued CT COLONOGRAPHY Discontinued FECAL OCCULT BLOOD TEST Discontinued FIT Testing (1 year) Discontinued Procedures Procedure Name Priority Date/Time Associated Diagnosis Comments SCANNED - COLONOSCOPY 07/19/2021 from Last 3 Months or Most Recently Relevant to Health Maintenance Results * SCANNED - COLONOSCOPY (07/19/2021) Wali Grant MD CHART REVIEW TABS Final Res ult from Last 3 Months or Most Recently Relevant to Health Maintenance Insurance MEDICARE A & B Care Teams Facsimile Operator Relationship Specialty Start Date End Date Freddie Burgos MD [address] [place] [address] [address] PCP - General Adolescent Medicine 07/20/18
[2025-01-01 11:31] LABS: Hematocrit 42.4 % (42.0-52.0); Hemoglobin 14.2 g/dL (14.1-18.0); Immature Granulocytes % 0.3 %; Mean Corpuscular HGB Conc 33.5 g/dL (31.8-35.4); Mean Corpuscular Hemoglobin 31.6 pg (27.0-31.2); Mean Corpuscular Volume 94.2 fl (80-94); Nucleated Red Blood Cells % 0 %; Platelet Count 212 K/mm3 (142-424); Red Blood Count 4.50 M/mm3 (4.60-6.20); Red Cell Distribution Width-SD 49.3 fL; White Blood Count 7.1 K/mm3 (4.8-10.8)
[2025-01-01 11:46] LABS: Albumin Level 3.8 g/dl (3.5-5.0); Chloride 98 mmol/L (98-107); Potassium 4.2 mmoL/L (3.5-5.1); Sodium 135 mmol/L (136-145)
[2025-01-01 11:49] LABS: Alanine Aminotransferase 31 U/L (12-78); Albumin/Globulin Ratio 1.3 (1.1-1.8); Alkaline Phosphatase 52 U/L (38-126); Anion Gap 12.2 mEq/L (5-15); Aspartate Amino Transferase 32 U/L (17-59); Bilirubin,Total 0.6 mg/dl (0.2-1.3); Blood Urea Nitrogen 14 mg/dl (9-20); Calcium 9.0 mg/dl (8.4-10.2); Carbon Dioxide 29 mmol/L (22.0-30.0); Creatinine,Serum 0.80 mg/dl (0.66-1.25); Estimated Glomerular Filt Rate 93 ml/min (>60); GFR (African American) 113 ML/MIN (>60); Globulin 3.0 g/dL (1.3-3.2); Glucose 122 mg/dl (74-100); Total Protein,Serum 6.8 g/dl (6.3-8.2)
== END 2025-01-01 23:59 | disposition home or self-care (01) ==
LOC: LAB 10:46
PROVIDERS: PCP Internal Medicine Adolescent Medicine; Visit Provider Dermatology
DX: Z79.899 Other long term (current) drug therapy (principal)
CPT/HCPCS: 36415; 80053; 85025